=== PATIENT | female | born 1940 | race Two or more races ===

== ENCOUNTER 2023-03-09 18:33 | Emergency (ER) | payer MEDICARE, OTHER ==
[~2023-03-09] VITALS: Ht 157.5 cm; Wt 65.8 kg
[2023-03-09 18:56] VITALS: BP 136/87; PULSE 79; RESP 18; O2SAT 97
== END 2023-03-10 06:05 | disposition left against medical advice (07) ==
LOC: ER 18:33
DX: M79.601 Pain in right arm (principal); R22.31 Localized swelling, mass and lump, right upper limb; Z53.21 Procedure and treatment not carried out due to patient leaving prior to being seen by health care provider